=== PATIENT | female | born 1990 | race Caucasian/White ===

== ENCOUNTER 2017-03-19 17:34 | Emergency (ER) | payer MEDICAID, OTHER ==
[2017-03-19] MEDS ORDERED: TYLENOL PO ONE (22:02)
[2017-03-19] MEDS ORDERED: PROVENTIL IH ONE (22:03)
[2017-03-19] MEDS ORDERED: BENADRYL PO ONE (22:03)
--- NOTE | 2017-03-19 22:05 | Emergency Department Report ---
- General Chief Complaint: Upper Respiratory Infection Stated Complaint: FLU LIKE SYMPTOMS Time Seen by Provider: 03/19/17 21:40 Source: patient Mode of arrival: Ambulatory Limitations: No Limitations - History of Present Illness Initial Comments: 27F PMH none p/w c/o 1 week of dry cough, runny nose, body aches. Patient is awake alert and oriented 3 not in acute distress. Denies fevers chills dysuria hematuria. Denies abdominal pain chest pain or shortness of breath at rest. Denies any pleuritic chest pain. Patient is currently approximately 3 months by LMP. LMP 01/10/17 MD Complaint: cough, rhinorrhea, nasal congestion Onset/Timin -: week(s) Severity: moderate Improves With: OTC cold medicine Worsens With: nothing Associated Symptoms: cough - Related Data Previous Rx's Medication Instructions Recorded Last Taken Type HYDROcodone/APAP 5-325 [[place] 1 each PO Q6HR PRN #24 tablet 06/03/15 Unknown Rx 5/325] ALBUTEROL Inhaler [ProAir HFA 2 puff IH QID PRN #1 inhalation 03/19/17 Unknown Rx Inhaler] Acetaminophen [Acetaminophen TAB] 500 mg PO Q8H PRN #30 tablet 03/19/17 Unknown Rx Azithromycin [Zithromax Z-TYRELL] 250 mg PO QDAY #1 pack 03/19/17 Unknown Rx diphenhydrAMINE [Benadryl CAP] 25 mg PO Q8HR PRN #30 capsule 03/19/17 Unknown Rx guaiFENesin [Guaifenesin] 10 mg PO Q6H PRN #1 liquid 03/19/17 Unknown Rx Allergies Allergy/AdvReac Type Severity Reaction Status Date / Time No Known Allergies Allergy Verified 05/28/15 10:06 ED Review of Systems ROS: Stated complaint: FLU LIKE SYMPTOMS Other details as noted in HPI Constitutional: fever, malaise. denies: chills Eyes: denies: eye pain, eye discharge, vision change ENT: throat pain. denies: ear pain Respiratory: cough. denies: shortness of breath, wheezing Cardiovascular: denies: chest pain, palpitations Endocrine: no symptoms reported Gastrointestinal: denies: abdominal pain, nausea, diarrhea Genitourinary: denies: urgency, dysuria, discharge Musculoskeletal: denies: back pain, joint swelling, arthralgia Skin: denies: rash, lesions Neurological: denies: headache, weakness, paresthesias Psychiatric: denies: anxiety, depression Hematological/Lymphatic: denies: easy bleeding, easy bruising ED Past Medical Hx - Past Medical History Hx Hypertension: No Hx Renal Disease: No Hx Seizures: No Hx Asthma: No - Social History Smoking Status: Never Smoker Substance Use Type: None - Medications Home Medications: Home Medications Medication Instructions Recorded Confirmed Last Taken Type HYDROcodone/APAP 5-325 [[place] 1 each PO Q6HR PRN #24 tablet 06/03/15 Unknown Rx 5/325] ALBUTEROL Inhaler [ProAir HFA 2 puff IH QID PRN #1 inhalation 03/19/17 Unknown Rx Inhaler] Acetaminophen [Acetaminophen TAB] 500 mg PO Q8H PRN #30 tablet 03/19/17 Unknown Rx Azithromycin [Zithromax Z-TYRELL] 250 mg PO QDAY #1 pack 03/19/17 Unknown Rx diphenhydrAMINE [Benadryl CAP] 25 mg PO Q8HR PRN #30 capsule 03/19/17 Unknown Rx guaiFENesin [Guaifenesin] 10 mg PO Q6H PRN #1 liquid 03/19/17 Unknown Rx ED Physical Exam - General Limitations: No Limitations General appearance: alert, in no apparent distress - Head Head exam: Present: atraumatic, normocephalic - Eye Eye exam: Present: normal appearance, PERRL, EOMI - ENT ENT exam: Present: normal exam, mucous membranes moist - Neck Neck exam: Present: normal inspection, full ROM - Respiratory Respiratory exam: Present: normal lung sounds bilaterally (lungs clear to auscultation bilaterally). Absent: respiratory distress - Cardiovascular Cardiovascular Exam: Present: regular rate, normal rhythm. Absent: systolic murmur, diastolic murmur, rubs, gallop - GI/Abdominal GI/Abdominal exam: Present: soft, normal bowel sounds - Extremities Exam Extremities exam: Present: normal inspection - Back Exam Back exam: Present: normal inspection - Neurological Exam Neurological exam: Present: alert, oriented X3 - Psychiatric Psychiatric exam: Present: normal affect, normal mood - Skin Skin exam: Present: warm, dry, intact, normal color. Absent: rash ED Course Vital Signs 03/19/17 18:37 Temperature 98.4 F Pulse Rate 94 H Respiratory 20 Rate Blood Pressure 132/68 O2 Sat by Pulse 99 Oximetry ED Medical Decision Making - Medical Decision Making A/P: URI, viral syndrome 1-albuterol inhaler when necessary, Benadryl when necessary, guaifenesin when necessary, Tylenol when necessary 2-as patient states she has sick contacts and has had dry cough for a week we' ll cover empirically with azithromycin which is safe during . We will try to avoid x-ray as patient is currently . 3-vital signs stable for discharge. Critical care attestation.: If time is entered above; I have spent that time in minutes in the direct care of this critically ill patient, excluding procedure time. ED Disposition Clinical Impression: Upper respiratory infection Qualifiers: URI type: unspecified URI Qualified Code(s): J06.9 - Acute upper respiratory infection, unspecified Disposition: - TO HOME OR SELFCARE Is pt being admited?: No Does the pt Need Aspirin: No Condition: Stable Instructions: Upper Respiratory Infection (ED), Cold Symptoms (ED), Viral Syndrome (ED) Prescriptions: Acetaminophen [Acetaminophen TAB] 500 mg PO Q8H PRN #30 tablet PRN Reason: Cough ALBUTEROL Inhaler [ProAir HFA Inhaler] 2 puff IH QID PRN #1 inhalation PRN Reason: Shortness Of Breath Azithromycin [Zithromax Z-TYRELL] 250 mg PO QDAY #1 pack diphenhydrAMINE [Benadryl CAP] 25 mg PO Q8HR PRN #30 capsule PRN Reason: Cough guaiFENesin [Guaifenesin] 10 mg PO Q6H PRN #1 liquid PRN Reason: Cough Referrals: [facility] [Provider Group] - 3-5 Days [facility] [Outside] - 3-5 Days [facility] [Outside] - 3-5 Days Forms: Work/School Release Form(ED) Time of Disposition: 23:43
[2017-03-20 02:12] VITALS: BP 103/64
== END 2017-03-19 23:55 | disposition home or self-care (01) ==
LOC: ED 17:34
DX: J06.9 Acute upper respiratory infection, unspecified (principal)
CPT/HCPCS: 87400